=== PATIENT | male | born 1955 | race Two or more races ===

== ENCOUNTER 2016-12-08 08:40 | Day surgery (SDC) | payer OTHER ==
[~2016-12-08] VITALS: Ht 180.3 cm; Wt 95.0 kg
[~2016-12-08 08:40] MED LIST: MULT1CAP33 PO; Sodium Chloride LOK Flush 10 mL Syringe IV PRN; fentaNYL-PF 50 mCg/mL 2 mL Inj IVPUSH PRN
[2016-12-08 09:17] VITALS: BP 128/79; PULSE 95; RESP 16; O2SAT 98
[2016-12-08] MEDS: 0.9% Sodium Chloride 1,000 ML IV SCH ×2 (09:26→10:02)
--- NOTE | 2016-12-08 10:13 | PCM.ENDCOL ---
Colonoscopy Date of Service: Dec 08, 2016 Physician Cale Atkinson MD Pre Procedure Diagnosis: Screening Post Procedure Dx & Findings: Polyp hemorrhoids Procedure Colonoscopy PROCEDURE IN DETAIL: Prep adequate Withdrawal time 11 minutes After unremarkable rectal examination the Olympus video colonoscope was inserted patient's anal canal and was advanced to cecum. Landmarks were identified including the ileocecal valve and appendiceal orifice. Scope was withdrawn systematically. Visualized colonic mucosa showed healthy shiny mucosa with normal healthy-appearing vasculature. In the transverse colon there was a 1 mm polyp which was removed completely using cold forceps. In the rectum retroflexion was done which showed hemorrhoids. Anal canal was inspected carefully on the way out and hemorrhoids noted. Impression Polyp 1 status post complete removal Hemorrhoids Recommendation Repeat colonoscopy in 5 years Presedation Assessment Risks and Benefits Informed consent was obtained from the patient after all risks and benefits including but not limited to drug reaction, infection, pain, bleeding, perforation, as well as alternatives were discussed. Patient monitoring Continuous pulse oximetry, cardiac monitoring, blood pressure monitoring, IV access, and oxygen at 2L per nasal cannula. Periprocedural Fentanyl: Fentanyl 75mcg Incrementally Midazolam: Midazolam 4mg Incrementally Complications There were no periprocedural complications identified. Post Procedure Plan Post Procedure Recommendations 1. Restrict activities today. 2. Resume normal activities in the morning. 3. Resume medications. 4. Patient informed of normal post procedure side effects as bloating, drowsiness, blood streaking in the stool. 5. average risk CRCS. If colon polyps come back as: -Hyperplastic- can repeat colonoscopy in 10 years -Tubular adenoma- repeat colonoscopy in 5 years -Tubulovillous/villous adenoma- repeat colonoscopy in 3 years -If any dysplasia- return to clinic as soon as possible 6. Please don't hesitate to call me with any questions. Cale Atkinson MD Dec 08, 2016 10:13
[2016-12-08 10:15] VITALS: BP 109/77; PULSE 78; RESP 16; O2SAT 98
[2016-12-08 10:25] VITALS: BP 115/79; PULSE 78; RESP 16; O2SAT 97
[2016-12-08 10:40] VITALS: BP 128/80; PULSE 77; RESP 16; O2SAT 97
--- NOTE | 2016-12-09 15:12 | PATH ---
SURGICAL PATHOLOGY Attending Physician:Cale Atkinson M.D. CASE STATUS: Signed Out PATIENT NAME: DANY MAYERS PID: [id number] : 1955 DATE COLLECTED:12/08/2016 21:03 SPECIMEN: Colon, Biopsy CLINICAL HISTORY: SCREENING COLONOSCOPY 1). TRANSVERSE COLON POLYP FINAL DIAGNOSIS: 1.TRANSVERSE COLON POLYP BIOPSY: POLYPOID-SHAPED FRAGMENT OF COLON MUCOSA CONSISTENT WITH MUCOSAL POLYPOID REDUNDANCY. Negative for dysplasia and malignancy. ICD10 D12.6 GROSS DESCRIPTION: The specimen is received in one formalin filled container labeled with the patient's name, sublabeled "transverse colon polyp" and consists of a 0.2 x 0.2 x 0.2 CM portion of tissue which is entirely submitted in one cassette. 12/08/2016 DAC MICRO DESCRIPTION: See diagnosis. ICD-9 CODES: CPT CODES: 1: 91237 Electronically Signed Out Adelfo Aviles MD [facility] [address], [place] [address] Technical component performed at [facility], [facility] [address], [address]
== END 2016-12-08 23:59 | disposition home or self-care (01) ==
LOC: END 08:40
PROVIDERS: ATTEND Internal Medicine
DX: Z12.11 Encounter for screening for malignant neoplasm of colon (principal); D12.3 Benign neoplasm of transverse colon; K64.9 Unspecified hemorrhoids
CPT/HCPCS: 45380; G0500; J7030